=== PATIENT | female | born 1970 | race African-American/Black ===

== ENCOUNTER 2016-09-28 08:32 | Emergency (ER) | payer MEDICAID ==
[2016-09-28] MEDS ORDERED: Ketorolac 60 MG/2 ML SDV IM ONE (09:06)
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
[2016-09-28 09:57] VITALS: BP 185/121
== END 2016-09-28 09:46 | disposition home or self-care (01) ==
LOC: MW.ED 08:32
DX: G89.29 Other chronic pain (principal); M25.552 Pain in left hip; I10 Essential (primary) hypertension; Z76.0 Encounter for issue of repeat prescription; Z79.899 Other long term (current) drug therapy
CPT/HCPCS: 99282

== ENCOUNTER 2017-02-08 01:32 | Emergency (ER) | payer MEDICAID ==
--- NOTE | 2017-02-08 01:46 | EDM.PDOC ---
ED HPI GENERAL MEDICAL PROBLEM - General Chief Complaint: Cardiovascular Problem Stated Complaint: HEADACHE/HIGH BLOOD PRESSURE Time Seen by Provider: 02/08/17 01:45 - History of Present Illness INITIAL COMMENTS - FREE TEXT/NARRATIVE: HISTORY AND PHYSICAL: History of present illness: Asians 46-year-old black female history of hypertension presents with substernal chest pains vaguely describes in her chest and mid back radiating down both arms she also had a mild headache she states she recently was unable to refill 2 over 3 antihypertensives and to call blood pressure measurement at home and noted to be elevated she will and quite anxious and presents here now for evaluation Review of systems: As per history of present illness and below otherwise all systems reviewed and negative. Past medical history: As per history of present illness and as reviewed below otherwise noncontributory. Surgical history: As per history of present illness and as reviewed below otherwise noncontributory. Social history: No reported history of drug or alcohol abuse. Family history: As per history of present illness and as reviewed below otherwise noncontributory. Physical exam: HEENT: Atraumatic, normocephalic, pupils reactive, negative for conjunctival pallor or scleral icterus, mucous membranes moist, throat clear, neck supple, nontender, trachea midline. Lungs: Clear to auscultation, breath sounds equal bilaterally, chest nontender. Heart: S1S2, regular, negative for clicks, rubs, or JVD. Abdomen: Soft, nondistended, nontender. Negative for masses or hepatosplenomegaly. Negative for costovertebral tenderness. Pelvis: Stable nontender. Genitourinary: Deferred. Rectal: Deferred. Extremities: Atraumatic, negative for cords or calf pain. Neurovascular unremarkable. Neuro: Awake, alert, oriented. Cranial nerves II through XII unremarkable. Cerebellum unremarkable. Motor and sensory unremarkable throughout. Exam nonfocal. Diagnostics: CBC CMP troponin PT/INR chest x-ray EKG Therapeutics: IV O2 monitor Impression: #1 atypical chest pain #2 hypertension #3 medical noncompliance Definitive disposition and diagnosis as appropriate pending reevaluation and review of above. Middle Chest Pain Score (Numeric/FACES): 8 - Related Data Allergies Allergy/AdvReac Type Severity Reaction Status Date / Time codeine Allergy Vomiting Verified 02/08/17 01:39 Home Meds: Home Meds Metoprolol Tartrate [Lopressor] 25 mg PO BID 09/28/16 [History] Past Medical History - Past Health History Medical/Surgical History: Denies Medical/Surgical History Cardiovascular History: Reports: Hypertension - Infectious Disease History Infectious Disease History: Reports: Chicken Pox - Past Surgical History Musculoskeletal Surgical History: Reports: Other (See Below) Other Musculoskeletal Surgeries/Procedures:: left leg fracture Social & Family History - Family History Family Medical History: Noncontributory - Tobacco Use Smoking Status *Q: Never Smoker - Recreational Drug Use Recreational Drug Use: No ED ROS GENERAL - Review of Systems Review Of Systems: ROS reveals no pertinent complaints other than HPI. ED EXAM, GENERAL - Physical Exam Exam: See Below (See dictation) Course - Vital Signs Text/Narrative:: Unremarkable ER course patient eager for discharge request discharge complaints at this time Last Recorded V/S: Last Vital Signs Temp 36.6 C 02/08/17 01:37 Pulse 72 02/08/17 02:48 Resp 18 02/08/17 02:48 BP 183/100 H 02/08/17 02:48 Pulse Ox 97 02/08/17 02:48 - Orders/Labs/Meds Orders: Active Orders 24 hr Category Date Time Status Cardiac Monitoring [RC] . DIRECTED Care 02/08/17 01:49 Active Cardiac Monitoring [RC] . DIRECTED Care 02/08/17 01:52 Inactive EKG Documentation Completion [RC] STAT Care 02/08/17 01:49 Active Chest 1V Frontal [CR] Stat Exams 02/08/17 01:50 Taken Labs: Laboratory Tests 02/08/17 02/08/17 02/08/17 Range/Units 01:48 01:48 01:48 WBC 7.43 (4.0-11.0) K/uL RBC 4.47 (4.30-5.90) M/uL Hgb 13.8 (12.0-16.0) g/dL Hct 40.3 (36.0-46.0) % MCV 90.2 (80.0-98.0) fL MCH 30.9 (27.0-32.0) pg MCHC 34.2 (31.0-37.0) g/dL RDW Std Deviation 46.2 (28.0-62.0) fl RDW Coeff of Sarahy 14 (11.0-15.0) % Plt Count 321 (150-400) K/uL MPV 10.70 (7.40-12.00) fL Neut % (Auto) 61.3 (48.0-80.0) % Lymph % (Auto) 29.3 (16.0-40.0) % [place] % (Auto) 7.1 (0.0-15.0) % Eos % (Auto) 2.0 (0.0-7.0) % Baso % (Auto) 0.3 (0.0-1.5) % Neut # (Auto) 4.6 (1.4-5.7) K/uL Lymph # (Auto) 2.2 (0.6-2.4) K/uL [place] # (Auto) 0.5 (0.0-0.8) K/uL Eos # (Auto) 0.2 (0.0-0.7) K/uL Baso # (Auto) 0.0 (0.0-0.1) K/uL Nucleated RBC % 0.0 /100WBC Nucleated RBCs # 0 K/uL INR 0.97 (0.86-1.11) Sodium 138 (136-146) mmol/L Potassium 3.4 L (3.5-5.1) mmol/L Chloride 104 (98-110) mmol/L Carbon Dioxide 22 (21-31) mmol/L BUN 17 (6.0-23.0) mg/dL Creatinine 0.9 (0.6-1.5) mg/dL Est Cr Clr Drug Dosing 65.30 mL/min Estimated GFR (MDRD) > 60.0 ml/min Glucose 109 (60-110) mg/dL Calcium 8.9 (8.8-10.8) mg/dL Troponin I < 0.10 (0.0-0.29) NG/ML Departure - Departure Time of Disposition: 03:31 Disposition: Home, Self-Care 01 Condition: Good Clinical Impression: Atypical chest pain, History of hypertension, Medical non-compliance Referrals: PCP,None [Primary Care Provider] - Forms: ED Department Discharge Additional Instructions: The following information is given to patients seen in the emergency department who are being discharged to home. This information is to outline your options for follow-up care. We provide all patients seen in our emergency department with a follow-up referral. The need for follow-up, as well as the timing and circumstances, are variable depending upon the specifics of your emergency department visit. If you don't have a primary care physician on staff, we will provide you with a referral. We always advise you to contact your personal physician following an emergency department visit to inform them of the circumstance of the visit and for follow-up with them and/or the need for any referrals to a consulting specialist. The emergency department will also refer you to a specialist when appropriate. This referral assures that you have the opportunity for followup care with a specialist. All of these measure are taken in an effort to provide you with optimal care, which includes your followup. Under all circumstances we always encourage you to contact your private physician who remains a resource for coordinating your care. When calling for followup care, please make the office aware that this follow-up is from your recent emergency room visit. If for any reason you are refused follow-up, please contact the [facility] emergency department at and asked to speak to the emergency department charge nurse. Follow-up primary medical doctor 1-2 days medications as prescribed return as needed as discussed - My Orders Last 24 Hours: My Active Orders 02/08/17 01:49 Cardiac Monitoring [RC] . DIRECTED EKG Documentation Completion [RC] STAT 02/08/17 01:50 Chest 1V Frontal [CR] Stat 02/08/17 01:52 Cardiac Monitoring [RC] . DIRECTED - Assessment/Plan Last 24 Hours: My Active Orders 02/08/17 01:49 Cardiac Monitoring [RC] . DIRECTED EKG Documentation Completion [RC] STAT 02/08/17 01:50 Chest 1V Frontal [CR] Stat 02/08/17 01:52 Cardiac Monitoring [RC] . DIRECTED
[2017-02-08 02:26] LABS: CHLORIDE,CL 104 mmol/L (98-110); SODIUM,NA 138 mmol/L (136-146)
[2017-02-08 03:37] VITALS: BP 180/102
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
== END 2017-02-08 03:40 | disposition home or self-care (01) ==
LOC: MW.ED 01:32
DX: R07.89 Other chest pain (principal); I10 Essential (primary) hypertension; Z91.14 Patient's other noncompliance with medication regimen; Z88.5 Allergy status to narcotic agent
CPT/HCPCS: 36415; 71010; 71010-26; 80048; 84484; 85025; 85610; 93005; 99283; 99285-25

== ENCOUNTER 2017-05-12 05:41 | Emergency (ER) | payer MEDICAID ==
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
[2017-05-12 06:53] VITALS: BP 188/111
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
== END 2017-05-12 06:50 | disposition home or self-care (01) ==
LOC: MW.ED 05:41
DX: R51 Headache (principal); I10 Essential (primary) hypertension; Z88.5 Allergy status to narcotic agent; Z79.899 Other long term (current) drug therapy; Z77.22 Contact with and (suspected) exposure to environmental tobacco smoke (acute) (chronic); Y04.2XXA Assault by strike against or bumped into by another person, initial encounter
CPT/HCPCS: 70450; 70450-26; 70486; 70486-26; 99283; 99284-25

== ENCOUNTER 2017-05-14 17:52 | Emergency (ER) | payer MEDICAID ==
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
[2017-05-14] MEDS ORDERED: Proparacaine 0.5% Ophth Soln 15 ML Bottle EYELF STA (18:44)
[2017-05-14 19:36] VITALS: BP 147/99
== END 2017-05-14 19:39 | disposition home or self-care (01) ==
LOC: MW.ED 17:52
DX: S05.02XA Injury of conjunctiva and corneal abrasion without foreign body, left eye, initial encounter (principal); G44.209 Tension-type headache, unspecified, not intractable; I10 Essential (primary) hypertension; Z88.5 Allergy status to narcotic agent; Z79.899 Other long term (current) drug therapy; H53.142 Visual discomfort, left eye; Y04.2XXA Assault by strike against or bumped into by another person, initial encounter
CPT/HCPCS: 99283; 99284